=== PATIENT | female | born 1930 | race Caucasian/White ===

== ENCOUNTER 2019-01-06 09:12 | Emergency (ER) | payer OTHER ==
[~2019-01-06] VITALS: Ht 149.9 cm; Wt 56.7 kg
[2019-01-06 09:28] VITALS: BP 90/49
[2019-01-06] MEDS ORDERED: SODIUM CHLORIDE 0.9% 1,000 ML IV ONE (10:37)
[2019-01-06] MEDS ORDERED: LORazepam 2MG/ML-1ML VIAL IV ONE (10:45)
[2019-01-06] MEDS ORDERED: LORazepam 2MG/ML-1ML VIAL IM ONE (11:45)
== END 2019-01-06 13:44 | disposition home or self-care (01) ==
LOC: ER 09:12
DX: R41.82 Altered mental status, unspecified (principal); F03.90 Unspecified dementia, unspecified severity, without behavioral disturbance, psychotic disturbance, mood disturbance, and anxiety; F41.9 Anxiety disorder, unspecified
CPT/HCPCS: 93005; 96372; 99284; J2060; J7030